=== PATIENT | male | born 1995 | race Caucasian/White ===

== ENCOUNTER 2024-07-01 12:02 | Inpatient (IN) | payer OTHER ==
[2024-07-01 13:01] VITALS: BMI 19.8
[2024-07-01] MEDS ORDERED: BENZONATATE 200 MG CAPSULE PO PRN (16:42)
[2024-07-01] MEDS ORDERED: POLYETHYLENE GLYCOL (HEALTHYLAX) 3350 17 GM PACKET PO PRN (16:42)
[2024-07-01] MEDS ORDERED: NALOXONE (NARCAN) HCL 4 MG/0.1 ML SPRAY NS PRN (16:42)
[2024-07-01] MEDS ORDERED: NICOTINE POLACRILEX 2 MG GUM BUC PRN (16:42)
[2024-07-01] MEDS ORDERED: IBUPROFEN 400 MG TABLET (FP) PO PRN (16:42)
[2024-07-01] MEDS ORDERED: MAGNESIUM HYDROX 2400MG/30ML ORAL SUSPENSION 30 ML CUP PO PRN (16:42)
[2024-07-01] MEDS ORDERED: guaiFENesin 600 MG TABLET.ER (FP) PO PRN (16:42)
[2024-07-01] MEDS ORDERED: ACETAMINOPHEN 325 MG TABLET (FP) PO PRN (16:42)
[2024-07-01] MEDS ORDERED: NALOXONE HCL 0.4 MG/ML VIAL IM PRN (16:42)
[2024-07-01] MEDS ORDERED: MAG HYDROX/AL HYDROX/SIMETH 30 ML UNIT-DOSE CUP PO PRN (16:42)
[2024-07-01] MEDS ORDERED: BENZOCAINE/MENTHOL (CHLORASEPTIC ) LOZENGE MM PRN (16:42)
[2024-07-01] MEDS ORDERED: IBUPROFEN 600 MG TABLET (FP) PO PRN (16:42)
[2024-07-01] MEDS ORDERED: LOPERAMIDE HCL 2 MG CAPSULE PO PRN (16:42)
[2024-07-01] MEDS: MELATONIN 5 MG TABLETS PO SCH (21:45)
[2024-07-01] MEDS: THIAMINE 100 MG TABLET PO SCH (21:46)
[2024-07-01] MEDS: TUBERCULIN PPD 5 TU/0.1ML SYRINGE (IN PATIENT USE ONLY) ID ONE (21:47)
[2024-07-02] MEDS: PRENATAL VITAMINS W/ FOLIC ACID TABLET (FP) PO SCH (10:11)
[2024-07-02] MEDS: NICOTINE 21 MG/24 HOURS TOPICAL PATCH TD SCH (10:11)
[2024-07-02 12:48] LABS: HEMATOCRIT 41.5 % (35.4-49); HEMOGLOBIN 14.5 GM/dL (11.7-16.9); MCH 31.1 pg (25.7-33.7); MCHC 34.9 g/dl (32.0-35.9); MEAN CELL VOLUME 89.3 fl (80-96); MEAN PLT VOLUME 9.5 fl (7.5-11.1); PLATELET COUNT 229 10^3/uL (134-434); RBC 4.65 M/mm3 (4.00-5.60); RDW 14.6 % (11.9-15.9); WHITE BLOOD COUNT 4.9 K/mm3 (4.0-10.0)
[2024-07-02 12:55] LABS: CHLORIDE 111 mmol/L (98-107); POTASSIUM 4.2 mmol/L (3.5-5.1); SODIUM 142 mmol/L (136-145)
[2024-07-02 13:05] LABS: ALBUMIN 3.6 g/dl (3.4-5.0); GLUCOSE,RANDOM 92 mg/dL (74-106)
[2024-07-02 13:08] LABS: ANION GAP 5 mmol/L (4-13); BLOOD UREA NITROGEN 10.9 mg/dL (7-18); CALCIUM 8.7 mg/dL (8.5-10.1); CO2 26 mmol/L (21-32); CREATININE 0.9 mg/dL (0.55-1.3); SGPT/ALT 17 U/L (13-61)
[2024-07-02 13:12] LABS: SGOT/AST 12 U/L (15-37)
[2024-07-02 13:14] LABS: TOT PROT 6.2 g/dl (6.4-8.2)
[2024-07-02 13:15] LABS: ALK PHOS 57 U/L (45-117)
[2024-07-02 15:53] LABS: PH,URINE 6.5 (5.0-8.0); URINE APPEARANCE CLEAR; URINE BILIRUBIN NEGATIVE (NEGATIVE); URINE COLOR YELLOW; URINE GLUCOSE (UA) NEGATIVE (NEGATIVE); URINE KETONE NEGATIVE (NEGATIVE); URINE LEUK ESTERASE NEGATIVE (NEGATIVE); URINE NITRITE NEGATIVE (NEGATIVE); URINE PROTEIN NEGATIVE (NEGATIVE); URINE UROBILINOGEN 0.2 mg/dL (0.2-1.0)
[2024-07-04] MEDS: hydrOXYzine PAMOATE 25 MG CAPSULE (FP) PO PRN (09:55)
[2024-07-06] MEDS: BACLOFEN 10 MG TABLET (FP) PO SCH (21:28)
[2024-07-08] MEDS ORDERED: NICOTINE 21 MG/24 HOURS TOPICAL PATCH TD PRN (09:35)
[2024-07-13 06:43] VITALS: RESP 16
[2024-07-14 06:57] VITALS: PULSE 77; TEMP 97.8
[2024-07-14 07:01] VITALS: BP 118/78
== END 2024-07-14 10:01 | disposition home or self-care (01) | DRG 772 ==
LOC: YASAS 12:02 → Y3NR 17:04 → Y3W 07-02 14:00
PROVIDERS: ADMIT Psychiatry & Neurology Pain Medicine; ATTEND Psychiatry & Neurology Pain Medicine
PROC: HZ42ZZZ Group Counseling for Substance Abuse Treatment, Cognitive-Behavioral (ICD-10-PCS; principal; 2024-07-01)
DX: F14.20 Cocaine dependence, uncomplicated (principal); F12.20 Cannabis dependence, uncomplicated; F17.210 Nicotine dependence, cigarettes, uncomplicated; F43.10 Post-traumatic stress disorder, unspecified; R76.8 Other specified abnormal immunological findings in serum; Z56.0 Unemployment, unspecified
CPT/HCPCS: 36415; 80053; 80305; 80307; 81003; 85027; 86593; 86780; 87811; 93005; 93010; J0475

== ENCOUNTER 2024-09-27 13:24 | Inpatient (IN) | payer OTHER ==
[2024-09-27] MEDS ORDERED: IBUPROFEN 600 MG TABLET (FP) PO PRN (15:28)
[2024-09-27] MEDS ORDERED: ACETAMINOPHEN 325 MG TABLET (FP) PO PRN (15:28)
[2024-09-27] MEDS ORDERED: IBUPROFEN 400 MG TABLET (FP) PO PRN (15:28)
[2024-09-27] MEDS ORDERED: MAG HYDROX/AL HYDROX/SIMETH 30 ML UNIT-DOSE CUP PO PRN (15:28)
[2024-09-27] MEDS ORDERED: MAGNESIUM HYDROX 2400MG/30ML ORAL SUSPENSION 30 ML CUP PO PRN (15:28)
[2024-09-27] MEDS ORDERED: guaiFENesin 600 MG TABLET.ER (FP) PO PRN (15:28)
[2024-09-27] MEDS ORDERED: NALOXONE (NARCAN) HCL 4 MG/0.1 ML SPRAY NS PRN (15:28)
[2024-09-27] MEDS ORDERED: BENZOCAINE/MENTHOL (CHLORASEPTIC ) LOZENGE MM PRN (15:28)
[2024-09-27] MEDS ORDERED: BENZONATATE 200 MG CAPSULE PO PRN (15:28)
[2024-09-27] MEDS ORDERED: POLYETHYLENE GLYCOL (HEALTHYLAX) 3350 17 GM PACKET PO PRN (15:28)
[2024-09-27] MEDS ORDERED: LOPERAMIDE HCL 2 MG CAPSULE PO PRN (15:28)
[2024-09-27 16:14] VITALS: BMI 22.1
[2024-09-27] MEDS: NALTREXONE HCL 50 MG TABLET PO ONE ×2 (18:18→18:19)
[2024-09-27] MEDS: NALOXONE (NYS OPIOID OVERDOSE PROGRAM) 4 MG/0.1 ML SPRAY NS SCH (18:19)
[2024-09-27] MEDS: MELATONIN 5 MG TABLETS PO SCH (21:21)
[2024-09-27] MEDS: BACLOFEN 10 MG TABLET (FP) PO SCH (21:21)
[2024-09-27] MEDS: THIAMINE 100 MG TABLET PO SCH (21:21)
[2024-09-28 01:46] LABS: PH,URINE 6.5 (5.0-8.0); URINE APPEARANCE CLEAR; URINE BILIRUBIN NEGATIVE (NEGATIVE); URINE COLOR YELLOW; URINE GLUCOSE (UA) NEGATIVE (NEGATIVE); URINE KETONE NEGATIVE (NEGATIVE); URINE LEUK ESTERASE NEGATIVE (NEGATIVE); URINE NITRITE NEGATIVE (NEGATIVE); URINE PROTEIN NEGATIVE (NEGATIVE); URINE UROBILINOGEN 0.2 mg/dL (0.2-1.0)
[2024-09-28] MEDS: PRENATAL VITAMINS W/ FOLIC ACID TABLET (FP) PO SCH (09:34)
[2024-09-28] MEDS: NALTREXONE HCL 50 MG TABLET PO SCH (09:34)
[2024-09-28] MEDS: hydrOXYzine PAMOATE 25 MG CAPSULE (FP) PO PRN (09:35)
[2024-09-28 09:59] LABS: HEMATOCRIT 43.5 % (35.4-49); HEMOGLOBIN 14.7 GM/dL (11.7-16.9); MCH 30.8 pg (25.7-33.7); MCHC 33.8 g/dl (32.0-35.9); MEAN CELL VOLUME 90.9 fl (80-96); MEAN PLT VOLUME 9.6 fl (7.5-11.1); PLATELET COUNT 263 10^3/uL (134-434); RBC 4.78 M/mm3 (4.00-5.60); RDW 13.4 % (11.9-15.9); WHITE BLOOD COUNT 9.2 K/mm3 (4.0-10.0)
[2024-09-28 10:38] LABS: CHLORIDE 109 mmol/L (98-107); POTASSIUM 4.2 mmol/L (3.5-5.1); SODIUM 142 mmol/L (136-145)
[2024-09-28 10:40] LABS: ALBUMIN 3.3 g/dl (3.4-5.0); ANION GAP 5 mmol/L (4-13); CALCIUM 9.1 mg/dL (8.5-10.1); CO2 28 mmol/L (21-32)
[2024-09-28 10:41] LABS: BLOOD UREA NITROGEN 9.8 mg/dL (7-18); GLUCOSE,RANDOM 92 mg/dL (74-106)
[2024-09-28 10:43] LABS: SGOT/AST 20 U/L (15-37); SGPT/ALT 20 U/L (13-61)
[2024-09-28 10:44] LABS: CREATININE 0.9 mg/dL (0.55-1.3)
[2024-09-28 10:45] LABS: BILIRUBIN,TOTAL 0.5 mg/dL (0.2-1); TOT PROT 6.4 g/dl (6.4-8.2)
[2024-09-28 10:46] LABS: ALK PHOS 75 U/L (45-117)
[2024-09-28 14:17] LABS: SYPHILIS W/ RPR CONF REACTIVE (NONREACTIVE)
[2024-10-10 07:03] VITALS: PULSE 70
[2024-10-10] MEDS: NALTREXONE MICROSPHERES (VIVITROL) 380 MG DISP.SYRIN IM ONE (11:44)
[2024-10-10] MEDS: NALTREXONE HCL 50 MG TABLET PO SCH ×2 (12:25→13:53)
[2024-10-11 06:59] VITALS: BP 106/66; RESP 18; TEMP 97.8
[2024-10-11] MEDS: NALOXONE (NYS OPIOID OVERDOSE PROGRAM) 4 MG/0.1 ML SPRAY NS SCH ×2 (10:02→10:03)
[2024-10-11] MEDS: NALTREXONE HCL 50 MG TABLET PO SCH (10:02)
== END 2024-10-11 10:10 | disposition home or self-care (01) | DRG 772 ==
LOC: YASAS 13:24 → Y3NR 16:46 → Y5N 09-28 12:06
PROVIDERS: ADMIT Psychiatry & Neurology Pain Medicine; ATTEND Psychiatry & Neurology Pain Medicine
PROC: HZ42ZZZ Group Counseling for Substance Abuse Treatment, Cognitive-Behavioral (ICD-10-PCS; principal; 2024-09-27)
DX: F10.20 Alcohol dependence, uncomplicated (principal); F14.20 Cocaine dependence, uncomplicated; F12.20 Cannabis dependence, uncomplicated; F17.210 Nicotine dependence, cigarettes, uncomplicated; F31.9 Bipolar disorder, unspecified; F43.10 Post-traumatic stress disorder, unspecified
CPT/HCPCS: 36415; 80053; 80305; 80307; 81003; 85027; 86593; 86780; 86803; 87811; 93005; 93010; J0475